=== PATIENT | female | born 1965 | race Caucasian/White ===

== ENCOUNTER → 2017-09-14 11:07 | Outpatient (CLI) | payer OTHER, SELFPAY ==
[2017-09-14 13:32] LABS: Specimen Label SEND OUT
== END ==
PROVIDERS: Family Provider Family Medicine; PCP Family Medicine; Visit Provider Urology
DX: N20.0 Calculus of kidney (principal)
CPT/HCPCS: 36415; 99001

== ENCOUNTER → 2018-02-19 12:47 | Outpatient (CLI) | payer OTHER, SELFPAY ==
--- NOTE | 2018-02-19 12:49 | DI.MG.S_ITS ---
BILATERAL DIGITAL SCREENING MAMMOGRAM 3D/2D WITH CAD: 02/19/2018 CLINICAL: Routine screening. Family history of breast cancer. Comparison is made to exams dated: 02/18/2017 mammogram, 10/08/2015 mammogram, and 06/30/2013 mammogram - [facility]. The tissue of both breasts is extremely dense, which lowers the sensitivity of mammography. Current study was also evaluated with a Computer Aided Detection (CAD) system. There are benign calcifications in both breasts. No significant masses, calcifications, or other findings are seen in either breast. There has been no significant interval change. IMPRESSION: There is no mammographic evidence of malignancy. A 1 year screening mammogram is recommended. This exam was interpreted at Station ID: [id number]. NOTE: For mammograms, a report in lay terms will be sent to the patient. Approximately 15% of breast malignancies will not be visualized mammographically. In the management of a palpable breast mass, a negative mammogram must not discourage biopsy of a clinically suspicious lesion. Electronically Signed By: Anne santiago/frank:02/21/2018 16:17:14 letter sent: Normal Exam ACR BI-RADS Category 2: Benign Finding(s) 3342F
== END ==
PROVIDERS: Family Provider Family Medicine; PCP Family Medicine; Visit Provider Family Medicine
DX: Z12.31 Encounter for screening mammogram for malignant neoplasm of breast (principal); Z80.3 Family history of malignant neoplasm of breast
CPT/HCPCS: 77063; 77067

== ENCOUNTER → 2018-04-21 15:01 | Outpatient (CLI) | payer OTHER, SELFPAY ==
--- NOTE | 2018-04-21 | DI.US.S_ITS ---
PROCEDURE: US ABDOMEN COMPLETE INDICATIONS: HEPATIC HEMANGIOMA TECHNIQUE: Real-time scanning was performed of the abdominal and retroperitoneal organs, with image documentation. COMPARISON: [facility], CT, ABDOMEN W&WO CONTRAST, 03/29/2017, 13:24. [facility], US, ABDOMEN COMPLETE, 06/29/2016, 7:28. FINDINGS: Liver: Liver is normal in size and homogeneous in echotexture. Stable appearance of simple cyst at the junction between the left and right hepatic lobes measuring 3.3 x 2.7 x 3.2 cm. A posterior right hepatic lobe hyperechoic mass is again noted abutting the hepatic capsule measuring 2.2 x 1.6 x 1.6 cm. This is stable to slightly larger compared to prior study which previously measured 1.5 x 1.2 x 1.6 cm. This may be accounted for by slight differences in imaging technique. This demonstrated imaging characteristics of a benign hemangioma based on CT dated 03/29/2018. Gallbladder: Normal sonographic appearance. Biliary ducts: Intrahepatic bile ducts are non-dilated. Extrahepatic bile duct caliber measures 5.5 mm. Normal is 6-7 mm or less in diameter, or 10 mm or less post-cholecystectomy. Pancreas: Visualized portions of the pancreas are sonographically normal. Spleen: Spleen is normal in size and homogeneous in echotexture. Kidneys: Kidneys are normal in size and echotexture. Right kidney measures 12.0 cm long; left kidney measures 11.0 cm long. No hydronephrosis or nephrolithiasis. There is a rounded, 5 mm hyperechoic focus within the right mid kidney without associated vascularity or posterior shadowing. No suspicious solid masses. Aorta: Visualized aorta is normal in caliber at less than 3 cm. Iliacs: Proximal common iliac arteries are not well visualized due to overlying bowel gas. IVC: Intrahepatic inferior vena cava is patent. Miscellaneous: No free abdominal fluid. IMPRESSION: 1. Stable to slightly increased size of known, benign posterior right hepatic lobe hemangioma based on imaging characteristics of CT dated 03/29/2017. 2. There is a 5 mm rounded hyperechoic focus in the mid right kidney which may represent a non-shadowing nephrolith given prior history of nephrolithiasis versus a small angiomyolipoma. No hydronephrosis. 3. Stable hepatic cyst. Dictated by: Robert Moody M.D. on 04/22/2018 at 9:07 Approved by: Robert Moody M.D. on 04/22/2018 at 10:59
--- NOTE | 2018-04-21 | DI.CT.S_ITS ---
PROCEDURE: CT LUMBAR SPINE WO CON INDICATIONS: HEPATIC HEMANGIOMA TECHNIQUE: Noncontrast 3 mm thick sections acquired from the T12 level to the sacrum. Sagittal and coronal reformats were constructed. For radiation dose reduction, the following was used: automated exposure control. COMPARISON: [facility], CT, KIDNEY/ URETER/BLADDER, 06/17/2016, 7:44. [facility], MR, L-SPINE WITHOUT CONTRAST, 04/15/2017, 15:09. [facility], MR, L-SPINE WITH CONTRAST, 05/21/2017, 18:00. FINDINGS: Image quality: Excellent. Bones: There is normal bony alignment. No acute vertebral body compression fractures. A sclerotic focus within the L3 vertebral body is unchanged. Multilevel disc space narrowing and endplate osteophyte formation. Multilevel facet hypertrophy. Central spinal caliber is of normal overall caliber. No pars defects. Mild multilevel canal stenoses. Multilevel foraminal stenoses, worst at L4-L5, where there are moderate bilateral foraminal stenoses, and L5-S1, where there are moderate to severe bilateral foraminal stenoses. Soft tissues: No retroperitoneal masses or hematomas. Visualized aorta is normal in caliber. IMPRESSION: 1. No change in L3 hemangioma. 2. Multilevel degenerative disc and facet disease, causing mild multilevel canal stenoses, and multilevel foraminal stenoses, worst at L4-L5 and L5-S1 as above. Dictated by: Asael Strickland M.D. on 04/21/2018 at 15:02 Approved by: Asael Strickland M.D. on 04/21/2018 at 15:04
== END ==
PROVIDERS: Family Provider Family Medicine; PCP Family Medicine; Visit Provider Family Medicine
DX: D18.09 Hemangioma of other sites (principal); M51.36 Other intervertebral disc degeneration, lumbar region; M48.061 Spinal stenosis, lumbar region without neurogenic claudication; M48.07 Spinal stenosis, lumbosacral region
CPT/HCPCS: 72131; 76700

== ENCOUNTER → 2019-03-24 11:52 | Outpatient (CLI) | payer OTHER, SELFPAY ==
--- NOTE | 2019-03-24 | DI.MG.S_ITS ---
BILATERAL DIGITAL SCREENING MAMMOGRAM 3D/2D WITH CAD: 03/24/2019 CLINICAL: Routine screening. Family history of breast cancer. Comparison is made to exams dated: 02/19/2018 mammogram, 02/18/2017 mammogram, and 10/08/2015 mammogram - [facility]. The tissue of both breasts is extremely dense, which lowers the sensitivity of mammography. Current study was also evaluated with a Computer Aided Detection (CAD) system. There are benign calcifications in both breasts. No significant masses, calcifications, or other findings are seen in either breast. There has been no significant interval change. IMPRESSION: There is no mammographic evidence of malignancy. A 1 year screening mammogram is recommended. This exam was interpreted at Station ID: [id number]. NOTE: For mammograms, a report in lay terms will be sent to the patient. Approximately 15% of breast malignancies will not be visualized mammographically. In the management of a palpable breast mass, a negative mammogram must not discourage biopsy of a clinically suspicious lesion. Electronically Signed By: Malik moraes/frank:03/24/2019 16:11:25 letter sent: Normal Exam ACR BI-RADS Category 2: Benign Finding(s) 3342F
== END ==
PROVIDERS: PCP Family Medicine; Visit Provider Family Medicine
DX: Z12.31 Encounter for screening mammogram for malignant neoplasm of breast (principal); Z80.3 Family history of malignant neoplasm of breast
CPT/HCPCS: 77063; 77067

== ENCOUNTER → 2020-05-07 16:40 | Outpatient (CLI) | payer OTHER, SELFPAY ==
--- NOTE | 2020-05-07 16:43 | DI.MG.S_ITS ---
BILATERAL DIGITAL SCREENING MAMMOGRAM 3D/2D WITH CAD: 05/07/2020 CLINICAL: Routine screening. Family history of breast cancer. Comparison is made to exams dated: 03/24/2019 mammogram, 02/19/2018 mammogram, and 02/18/2017 mammogram - [facility]. The tissue of both breasts is extremely dense, which lowers the sensitivity of mammography. Current study was also evaluated with a Computer Aided Detection (CAD) system. There are benign calcifications in both breasts. No significant masses, calcifications, or other findings are seen in either breast. There has been no significant interval change. IMPRESSION: BENIGN There is no mammographic evidence of malignancy. A 1 year screening mammogram is recommended. This exam was interpreted at Station ID: [id number]. NOTE: For mammograms, a report in lay terms will be sent to the patient. Approximately 15% of breast malignancies will not be visualized mammographically. In the management of a palpable breast mass, a negative mammogram must not discourage biopsy of a clinically suspicious lesion. Electronically Signed By: James García acr/frank:05/07/2020 16:59:41 letter sent: Normal Exam ACR BI-RADS Category 2: Benign Finding(s) 3342F
== END ==
PROVIDERS: PCP Family Medicine; Referring Provider Family Medicine; Visit Provider Family Medicine
DX: Z12.31 Encounter for screening mammogram for malignant neoplasm of breast (principal); Z80.3 Family history of malignant neoplasm of breast
CPT/HCPCS: 77063; 77067

== ENCOUNTER → 2020-08-29 12:41 | Outpatient (CLI) | payer OTHER, SELFPAY ==
--- NOTE | 2020-08-29 12:42 | DI.CT.S_ITS ---
PROCEDURE: CT LUMBAR SPINE WO CON INDICATIONS: Hemangioma of intra-abdominal structures TECHNIQUE: Noncontrast 3 mm thick sections acquired from the T12 level to the sacrum. Sagittal and coronal reformats were constructed. For radiation dose reduction, the following was used: automated exposure control. COMPARISON: [facility], CT, CT LUMBAR SPINE WO CON, 04/21/2018, 15:10. FINDINGS: Image quality: Excellent. Bones: There is grade 1 anterolisthesis of L4 on L5, 5 mm, grade 1 retrolisthesis of L5 on S1, 6 mm. There is unchanged appearance of sclerosis within the L3 vertebral body. This is most suggestive of hemangioma. Minimal canal narrowing is noted at L3-4, L4-5 without change. Scattered minimal to mild disc bulges are present. Multilevel foraminal narrowing is present most notable at L4-5 and L5-S1 with prominent facet and ligamentum flavum hypertrophy. No interval progression. Soft tissues: No retroperitoneal masses or hematomas. Visualized aorta is normal in caliber. IMPRESSION: 1. Stable appearance of sclerosis at L3 most suggestive of hemangioma. 2. Scattered areas of degenerative change remaining most prominent L4-5 and L5-S1. Dictated by: May Sanchez M.D. on 08/29/2020 at 16:04 Approved by: May Sanchez M.D. on 08/29/2020 at 16:08
== END ==
PROVIDERS: PCP Family Medicine; Referring Provider Family Medicine; Visit Provider Family Medicine
DX: D18.03 Hemangioma of intra-abdominal structures (principal); M47.816 Spondylosis without myelopathy or radiculopathy, lumbar region; M47.817 Spondylosis without myelopathy or radiculopathy, lumbosacral region
CPT/HCPCS: 72131

== ENCOUNTER → 2021-06-11 14:10 | Outpatient (CLI) | payer OTHER, SELFPAY ==
--- NOTE | 2021-06-11 | DI.MG.S_ITS ---
BILATERAL DIGITAL SCREENING MAMMOGRAM 3D/2D WITH CAD: 06/11/2021 CLINICAL: Routine screening. Family history of breast cancer. Comparison is made to exams dated: 05/07/2020 mammogram, 03/24/2019 mammogram, and 02/19/2018 mammogram - [facility]. The tissue of both breasts is extremely dense, which lowers the sensitivity of mammography. Current study was also evaluated with a Computer Aided Detection (CAD) system. There is a possible asymmetry with an indistinct margin in the left breast middle depth central to the nipple seen on the craniocaudal view only. No other significant masses, calcifications, or other findings are seen in either breast. IMPRESSION: INCOMPLETE: NEEDS ADDITIONAL IMAGING EVALUATION The possible asymmetry in the left breast is indeterminate. Additional views with possible ultrasound are recommended. This exam was interpreted at Station ID: [id number]. NOTE: For mammograms, a report in lay terms will be sent to the patient. Approximately 15% of breast malignancies will not be visualized mammographically. In the management of a palpable breast mass, a negative mammogram must not discourage biopsy of a clinically suspicious lesion. Electronically Signed By: Jesús Pearson M.D., jr/frank:06/11/2021 15:17:07 letter sent: Additional Imaging Needed ACR BI-RADS Category 0: Incomplete 3340F
== END ==
PROVIDERS: PCP Family Medicine; Referring Provider Family Medicine; Visit Provider Family Medicine
DX: Z12.31 Encounter for screening mammogram for malignant neoplasm of breast (principal); Z80.3 Family history of malignant neoplasm of breast
CPT/HCPCS: 77063; 77067

== ENCOUNTER → 2021-07-21 14:08 | Outpatient (CLI) | payer OTHER, SELFPAY ==
--- NOTE | 2021-07-21 | DI.MG.S_ITS ---
UNILATERAL LEFT DIGITAL DIAGNOSTIC MAMMOGRAM 3D/2D WITH ADDITIONAL VIEWS: 07/21/2021 CLINICAL: Additional evaluation requested from prior study. Comparison is made to exams dated: 06/11/2021 mammogram, 03/24/2019 mammogram, and 05/07/2020 mammogram - [facility]. The tissue of left breast is extremely dense, which lowers the sensitivity of mammography. There are diffuse calcifications in the left breast that are not significantly changed. The previously described possible asymmetry with an indistinct margin in the left breast middle depth central to the nipple seen on the craniocaudal view only is not reproduced and presumably represented superimposed breast tissue. No other significant masses or calcifications are seen in the breast. IMPRESSION: INCOMPLETE: NEEDS ADDITIONAL IMAGING EVALUATION Given patient's extremely dense fibroglandular tissue, a left ultrasound is recommended to confirm the no longer seen asymmetry in the left breast middle depth central to the nipple seen on the craniocaudal view only. This is scheduled to immediately follow this exam. This exam was interpreted at Station ID: [id number]. NOTE: For mammograms, a report in lay terms will be sent to the patient. Approximately 15% of breast malignancies will not be visualized mammographically. In the management of a palpable breast mass, a negative mammogram must not discourage biopsy of a clinically suspicious lesion. Electronically Signed By: Robert Moody M.D. aty/:07/21/2021 16:02:16 ACR BI-RADS Category 0: Incomplete 3340F
--- NOTE | 2021-07-21 | DI.US.S_ITS ---
ULTRASOUND OF LEFT BREAST: 07/21/2021 CLINICAL: Patient returns today to evaluate an asymmetry in the left breast. Comparison is made to exams dated: 07/21/2021 mammogram, 06/11/2021 mammogram, 05/07/2020 mammogram, 03/24/2019 mammogram, 02/19/2018 mammogram, and 02/18/2017 mammogram - [facility]. Color flow and real-time ultrasound of the left breast were performed. Edwards scale images of the real-time examination were reviewed. No significant abnormalities were seen sonographically in the left breast. IMPRESSION: NEGATIVE There is no sonographic evidence of malignancy. There is no abnormality seen in the left breast to correspond with the mammography finding which likely represents normal fibroglandular tissue. A 1 year screening mammogram is recommended. Additionally, patient has an elevated lifetime risk for breast cancer of greater than 20% (34.9%). Recommend consideration for screening breast MRI as an adjunct to screening mammography. Findings and recommendations were conveyed to the patient during today's evaluation. This exam was interpreted at Station ID: [id number]. Electronically Signed By: Robert Moody M.D. aty/:07/21/2021 16:03:39 letter sent: Normal Exam Ultrasound BI-RADS: 1 Negative
== END ==
PROVIDERS: PCP Family Medicine; Referring Provider Family Medicine; Visit Provider Family Medicine
DX: R92.8 Other abnormal and inconclusive findings on diagnostic imaging of breast (principal); N64.89 Other specified disorders of breast
CPT/HCPCS: 76642; 77065; G0279

== ENCOUNTER → 2022-06-19 15:17 | Outpatient (CLI) | payer OTHER, SELFPAY ==
--- NOTE | 2022-06-19 | DI.MG.S_ITS ---
BILATERAL DIGITAL SCREENING MAMMOGRAM 3D/2D WITH CAD: 06/19/2022 CLINICAL: Routine screening. Family history of breast cancer. Comparison is made to exams dated: 06/11/2021 mammogram, 05/07/2020 mammogram, 03/24/2019 mammogram, and 02/19/2018 mammogram - [facility]. Both breasts are extremely dense, which lowers the sensitivity of mammography (category d />75% glandular tissue). Current study was also evaluated with a Computer Aided Detection (CAD) system. There are benign diffuse calcifications in both breasts. No significant masses, calcifications, or other findings are seen in either breast. There has been no significant interval change. IMPRESSION: BENIGN There is no mammographic evidence of malignancy. A 1 year screening mammogram is recommended. Based on Tyrer-Cuzick model (a risk assessment model), the patient's lifetime risk is 34.4% and her 10 year risk is 14.6%. If a patient has an elevated risk, a more comprehensive evaluation should be considered and/or a referral to a genetic counselor. The [place] [employer], [place] [employer], and NCCN Guidelines advise the consideration of Breast MRI as an adjunct to screening mammography in patients whose Lifetime risk to develop breast cancer is 20% or higher. This exam was interpreted at Station ID: [id number]. NOTE: For mammograms, a report in lay terms will be sent to the patient. Approximately 15% of breast malignancies will not be visualized mammographically. In the management of a palpable breast mass, a negative mammogram must not discourage biopsy of a clinically suspicious lesion. Electronically Signed By: Robert kaba/frank:06/19/2022 17:07:33 letter sent: Normal Exam ACR BI-RADS Category 2: Benign Finding(s) 3342F
== END ==
PROVIDERS: PCP Family Medicine; Referring Provider Family Medicine; Visit Provider Family Medicine
DX: Z12.31 Encounter for screening mammogram for malignant neoplasm of breast (principal); Z80.3 Family history of malignant neoplasm of breast
CPT/HCPCS: 77063; 77067

== ENCOUNTER 2022-12-19 10:29 | Emergency (ER) | payer OTHER, SELFPAY ==
[2022-12-19 10:33] VITALS: BP 113/65; PULSE 74; RESP 18; TEMP 37; O2SAT 100; BMI 20.2
--- NOTE | 2022-12-19 11:10 | ED_ITS ---
HPI - Fall General Chief Complaint: Fall Stated Complaint: FELL DOWN STAIRS Time Seen by Provider: 12/19/22 10:36 Source: patient and family Mode of arrival: Ambulatory History of Present Illness HPI Narrative: 57-year-old female nonsmoker with noncontributory chronic medical history presents with her in the chief complaint of injury suffered as a consequence of an accidental fall last night. She was walking outside to look at the clips and slipped on some stairs landing on her right lower ribs and posterior thigh. She denies any head neck or back pain. She has full recall and denies loss of consciousness, dizziness. She has no chest pain or shortness of breath. She denies any trouble with bowel movements or urine, specifically no blood in her urine. She has right lower rib pain and flank pain that is worse when she moves and improves with rest. She denies loss of control of bowel or bladder. She denies any lower extremity numbness, tingling or weakness. She took some ibuprofen and threw up soon thereafter but denies any other ongoing vomiting and no other medications Related Data Home Medications Medication Instructions Recorded Confirmed CYANOCOBALAMIN (VITAMIN B-12) 1,000 mcg PO QDAY ##0 09/06/12 Iron (FERROUS GLUCONATE) 27 mg PO QDAY ##0 09/06/12 cholecalciferol (vitamin D3) 50 2,000 unit PO QDAY ##0 09/06/12 mcg (2,000 unit) capsule (Vitamin D3) omeprazole 40 mg capsule,delayed 40 mg PO QDAY ##0 09/06/12 release ibuprofen 200 mg tablet (Advil) 200 mg PO PRN ##0 09/29/12 Previous Rx's Medication Instructions Recorded hydrocodone 5 mg-acetaminophen 325 1 tab PO Q6HP PRN #10 tabs 06/17/16 mg tablet ([place]) ondansetron 4 mg disintegrating 4 mg sublingual Q6HP PRN ##10 06/17/16 tablet (Zofran ODT) tamsulosin 0.4 mg capsule (Flomax) 0.4 mg PO Q DAY #7 caps 02/25/17 cyclobenzaprine 10 mg tablet 10 mg PO TID PRN muscle spasm #14 12/19/22 tabs hydrocodone 5 mg-acetaminophen 325 1 tab PO Q4-6H PRN pain #10 tabs 12/19/22 mg tablet ketorolac 10 mg tablet 10 mg PO Q6H PRN pain #14 tabs 12/19/22 lidocaine 5 % topical patch 1 patch topical DAILY #15 ea 12/19/22 (Lidoderm) Allergies Allergy/AdvReac Type Severity Reaction Status Date / Time No Known Drug Allergies Allergy Verified 12/19/22 10:34 Review of Systems Review of Systems Narrative: GENERAL: Denies chills, fatigue, malaise, fever, sweats. HEENT: Denies sinus pain, ear pain, sore throat, difficulty swallowing, dizziness. RESPIRATORY: Denies dyspnea, cough, wheezing, hemoptysis, sputum. CARDIOVASCULAR: Denies chest pain, palpitations, orthopnea, edema, GASTROINTESTINAL: See HPI : Denies dysuria, frequency, incontinence, hematuria, urinary retention. MUSCULOSKELETAL: See HPI SKIN: Denies rash, skin lesions, or other NEUROLOGIC: Denies weakness, headache, numbness, change in speech, confusion, seizures, incoordination. PSYCHIATRIC: No concerning psychosocial issues. 12 point review of systems is negative except for those stated above Patient History Surgical History Status post surgery (10/03/12) Substance Use Type: does not use Exam Narrative Exam Narrative: GENERAL: [57] year old patient appears stated age. Well-developed patient, in mild distress. Obviously uncomfortable, sitting upright, rubbing her right lower back HEAD: Atraumatic. Normocephalic. GCS 15 EYES: Pupils equal round and reactive. Extraocular motions intact. No scleral icterus. No injection or drainage. ENT: Nose without bleeding, purulent drainage. Throat without erythema, tonsillar hypertrophy or exudate. Airway patent. NECK: Trachea midline. Non tender CARDIOVASCULAR: Regular rate and rhythm without murmurs, gallops, or rubs. RESPIRATORY: Clear to auscultation. Breath sounds equal bilaterally. No wheezes, rales, or rhonchi. GASTROINTESTINAL: Abdomen soft, non-tender, nondistended. EXTREMITIES: No edema or joint tenderness. BACK: wax pot tender but free of any obvious external abnormalities. Patient exam notes decreased range of motion and muscle spasm, but no CVA tenderness, or vertebral point tenderness. There are no symptoms of cauda equina such as saddle anesthesia, and decreased reflexes, decreased sensation or strength. No swelling or ecchymosis noted NEURO: AOx3. SKIN: No rash or erythema of visible areas Initial Vital Signs Initial Vital Signs: Vital Signs Temperature 98.6 F 12/19/22 10:33 Pulse Rate 74 12/19/22 10:33 Respiratory Rate 18 12/19/22 10:33 Blood Pressure 113/65 12/19/22 10:33 Pulse Oximetry 100 12/19/22 10:33 Oxygen Delivery Method Room Air 12/19/22 10:33 Course Orders Ordered: ED Orders 12/19/22 11:15 XR femur RT min 2V Stat XR ribs RT min 3V w CXR1V Stat 12/19/22 12:25 Urinalysis and Microscopic Stat Urine Culture Stat 12/19/22 12:41 CT pelvis wo con Stat Discontinued Medications Ketorolac Tromethamine (Ketorolac 30 Mg/Ml Vial) 30 mg IM NOW ONE Stop: 12/19/22 11:16 Last Admin: 12/19/22 11:59 Dose: 30 mg Documented By: LAILA Lidocaine (Lidocaine Patch 1 Each Adh..Patch) 1 each TOP NOW ONE Stop: 12/19/22 11:16 Last Admin: 12/19/22 11:59 Dose: 1 each Documented By: LAILA Ondansetron HCl (Ondansetron 4 Mg Odt) 4 mg SL NOW ONE Stop: 12/19/22 11:16 Last Admin: 12/19/22 11:59 Dose: 4 mg Documented By: LAILA Vital Signs Vital signs: Vital Signs - 8 hr 12/19/22 10:33 12/19/22 14:46 Temperature 98.6 F Pulse Rate 74 78 Respiratory Rate 18 Blood Pressure 113/65 115/66 Pulse Oximetry 100 99 Oxygen Delivery Method Room Air Room Air - Fall Lab Data Labs: Lab Results 12/19/22 Range/Units 12:25 Urine Color Yellow Urine Appearance Clear Urine pH 6.5 (4.5-8.0) Ur Specific [place] 1.025 (1.000-1.035) Urine Protein Trace H (Negative) Urine Glucose (UA) Negative (Negative) g/dL Urine Ketones Negative (NEGATIVE) Urine Occult Blood Negative (Negative) Urine Nitrate Negative (Negative) Urine Bilirubin Negative (NEGATIVE) Urine Urobilinogen 1.0 (0.2) E.U./dL Ur Leukocyte Esterase Negative (NEGATIVE) Urine RBC None seen (0-5/HPF) Urine WBC 5-10/hpf H (0-5/HPF) Ur Squamous Epith Cells 5-10 /hpf H (0-5/HPF) Urine Bacteria Moderate (10-30) H (None) Urine Mucus 2+ H (Negative) Ur Culture Indicated? Specimen cultured Urine Dip Bedside Urine Glucose Negative Bedside Urine Bilirubin - Negative Bedside Urine Ketone - Negative Urine Specific [place] 1.025 Bedside Urine Occult Blood - Negative Bedside Urine pH 6.0 Bedside Urine Protein + 30 Bedside Urine Urobilinogen - Negative Bedside Urine Nitrite - Negative Bedside Urine Leukocytes - Negative Esterase MDM Narrative Medical decision making narrative: [57] year old patient presents with right flank, low back and posterior thigh pain after fall Multiple etiologies for patient's symptoms considered including, but not limited to: [Spasm versus strain versus contusion versus fracture versus (much less likely) injury to internal organs such as kidney and bowel] Prior Charts reviewed in our EMR Primary Historian: patient Imaging reviewed: CT of pelvis without evidence of fracture, x-rays of rib and femur without obvious abnormality Patient's history and physical exam are very reassuring, no external manifestation of injury, no bruising or hematoma on flank, no blood in urine. There is some evidence of leukocytosis in the urine, however patient has no dysuria, frequency or urgency, she states she is had UTIs in the past and does not feel like she has 1. We discussed the use of antibiotics now versus waiting on the culture and elected to hold on the culture. Additionally we discussed the utility of more advanced imaging of her abdomen and pelvis to rule out internal bleeding but patient's symptoms are mild, significantly improved with above-stated therapies, no external evidence such as abrasion, contusion or hematoma. No blood in urine. We did discuss return precautions but in the end decided not to perform a CT at this time. Patient's symptoms improved over duration of stay with above-stated therapies. Findings and discharge diagnosis discussed with patient/family followed by leonardo jimenez understanding Return precautions discussed with patient/family whom verbalize understanding of diagnosis and plan Discharge Plan Departure Patient Disposition: Home Clinical Impression: Low back pain Instructions: How to Prevent Falls Activity Restrictions/Additional Instructions: *You have been diagnosed with [flank pain after fall. As we discussed your history and physical exam are very reassuring and there is no evidence of fracture, internal bleeding. Your discomfort is most likely a consequence of inflammation and spasming.] *What to do: *Please continue to take your regular medications as directed. [x ] New medication prescriptions sent to your pharmacy: [[facility] ] [ ] New medication written as a paper prescription [ ] No new medications given *Please follow up with your primary care provider in 2-3 days, call for an appointment. Let them know you were seen in the Emergency Department and that we ask that you be seen in follow up. We will electronically transmit a record of today's note if your PCP is in our system *Return to Emergency Department if you should have any new, worsening or concerning symptoms, such as [fever greater than 101 F, shaking chills, worsening pain, persistent vomiting or other bothersome symptoms] You have been prescribed a short course of narcotic medications. These are potentially dangerous and addictive medications that should be used carefully. While on these medications you cannot drive or operate heavy machinery. Additionally, you cannot sign legal documents or perform any duties such as this. 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 Please understand that we cannot provide further refills of narcotics or controlled substances through the ED and your pain management will need to be through your Primary Care Provider Prescriptions: New cyclobenzaprine 10 mg tablet 10 mg PO TID PRN (Reason: muscle spasm) Qty: 14 0RF hydrocodone-acetaminophen 5-325 mg tablet 1 tab PO Q4-6H PRN (Reason: pain) Qty: 10 0RF ketorolac 10 mg tablet 10 mg PO Q6H PRN (Reason: pain) Qty: 14 0RF lidocaine [Lidoderm] 5 % adhesive patch,medicated 1 patch TOP DAILY Qty: 15 0RF Rx Instructions: leave on most painful area for 12 hrs No Action omeprazole 40 MG capsule,delayed release(DR/EC) 40 mg PO QDAY Qty: 0 cholecalciferol (vitamin D3) [Vitamin D3] 2,000 UNIT capsule 2,000 unit PO QDAY Qty: 0 CYANOCOBALAMIN (VITAMIN B-12) 1,000 mcg PO QDAY Qty: 0 Iron (FERROUS GLUCONATE) 27 mg PO QDAY Qty: 0 ibuprofen [Advil] 200 MG tablet 200 mg PO PRN Qty: 0 hydrocodone-acetaminophen [[place]] 5 MG/325 MG tablet 1 tab PO Q6HP PRNQty: 10 0RF ondansetron [Zofran ODT] 4 MG tablet,disintegrating 4 mg Sublingual Q6HP PRNQty: 10 0RF tamsulosin [Flomax] 0.4 MG capsule,extended release 24hr 0.4 mg PO Q DAY Qty: 7 0RF Referrals: Britni Mesa MD [Primary Care Provider] - Stand Alone Forms: Patient Portal/API
--- NOTE | 2022-12-19 11:15 | DI.RAD.S_ITS ---
PROCEDURE: XR RIBS RT MIN 3V W CXR 1V INDICATIONS: fall with lower lateral rib pain TECHNIQUE: 2 views of the right ribs were acquired, along with a single view chest. COMPARISON: [facility], CR, XR FEMUR RT MIN 2V, 12/19/2022, 11:27. FINDINGS: Surgical changes and devices: None. Bones and chest wall: No fractures or dislocations. No suspicious bony lesions. Age-appropriate bony degenerative changes are seen. Overlying soft tissues appear unremarkable. Lungs and pleura: No pleural effusions or pneumothorax. Lungs appear clear. Mediastinum: Mediastinal contours appear normal. Heart size is normal. IMPRESSION: No displaced rib fracture is seen on these plain films. No pneumothorax. Dictated by: Daniel Reynoso M.D. on 12/19/2022 at 11:33 Approved by: Daniel Reynoso M.D. on 12/19/2022 at 11:34
--- NOTE | 2022-12-19 11:15 | DI.RAD.S_ITS ---
PROCEDURE: XR FEMUR RT MIN 2V INDICATIONS: fall with posterior thigh pain TECHNIQUE: 2 views of the femur were acquired. COMPARISON: [facility], CR, XR RIBS RT MIN 3V W CXR 1V, 12/19/2022, 11:27. FINDINGS: Bones: There is a minimal linear lucency seen involving the right greater trochanter on one view. No additional focal bony abnormality is seen. Right hip degenerative change can be seen. No suspicious lytic or blastic lesions are seen. Soft tissues: No suspicious soft tissue calcifications or masses. IMPRESSION: Minimal linear lucency seen on one view involving the right greater trochanter. This is felt most likely to be related to artifact. Differential diagnosis includes a nondisplaced fracture. If there is focal tenderness referable to this area, please consider a follow-up if CT for further evaluation. Dictated by: Daniel Reynoso M.D. on 12/19/2022 at 11:30 Approved by: Daniel Reynoso M.D. on 12/19/2022 at 11:32
[2022-12-19] MEDS: KETOROLAC 30 MG/ML VIAL IM (11:59)
[2022-12-19] MEDS: LIDOCAINE PATCH 1 EACH ADH..PATCH TOP (11:59)
[2022-12-19] MEDS: ONDANSETRON 4 MG ODT SL (11:59)
[2022-12-19 12:33] LABS: Appearance Urine UA CLEAR; Bilirubin Urine UA NEGATIVE (NEGATIVE); Color Urine UA YELLOW; Glucose Urine UA NEGATIVE (Negative); Ketones Urine UA NEGATIVE (NEGATIVE); Leukocyte Esterase Urine UA NEGATIVE (NEGATIVE); Nitrite Urine UA NEGATIVE (Negative); Occult Blood Urine UA NEGATIVE (Negative); Protein Urine UA TRACE (Negative); Specific Gravity Urine UA 1.025 (1.000-1.035)
[2022-12-19 12:34] LABS: pH Urine UA 6.5 (4.5-8.0)
--- NOTE | 2022-12-19 12:41 | DI.CT.S_ITS ---
PROCEDURE: CT PEL WO CON INDICATIONS: right lower hip pain, question fx on xray TECHNIQUE: Noncontrast 3 mm axial sections acquired through the bony pelvis, with coronal and sagittal reformatting. COMPARISON: [facility], CT, KIDNEY/ URETER/BLADDER, 02/25/2017, 5:58. [facility], CR, XR FEMUR RT MIN 2V, 12/19/2022, 11:27. FINDINGS: Image quality: Excellent. Bones: In this patient with this given history, scrutiny is given to right greater trochanter at the site of the potential plain film abnormality. No fracture can be seen at this site. No fracture seen elsewhere within the right proximal femur or within the bones of the pelvis. No left femur fracture is seen. Age-appropriate bony degenerative changes are seen. Note is made of a rudimentary, transitional disc at the S1-S2 level. Soft tissues: Calcified uterine fibroids can be seen within the uterus. No dilated loops of small bowel are seen. No significant colonic abnormality is seen. No bladder wall thickening is seen. No enlarged inguinal or pelvic lymph nodes can be seen. No ascites is seen. Soft tissue bruising can be seen involving the right posterolateral thigh superficial soft tissues, as on series 5, image 89. IMPRESSION: Negative for displaced fracture. The plain film finding is attributed to artifact. Soft tissue bruising noted. Additional findings: Calcified uterine fibroids Transitional disc noted at the S1-S2 level. Dictated by: Daniel Reynoso M.D. on 12/19/2022 at 12:57 Approved by: Daniel Reynoso M.D. on 12/19/2022 at 13:00
[2022-12-19 13:20] LABS: Bacteria Urine Moderate (10-30); Culture Indicated Urine Specimen Cultured; Mucus Urine 2+ (Negative); RBC Urine None Seen (0-5/HPF); Squamous Epithelial Cell Urine 5-10 /HPF (0-5/HPF); WBC Urine 5-10/HPF (0-5/HPF)
[2022-12-19 14:46] VITALS: BP 115/66; PULSE 78; O2SAT 99
== END 2022-12-19 15:06 | disposition home or self-care (01) ==
PROVIDERS: Emergency Provider Emergency Medicine; PCP Family Medicine
DX: M54.50 Low back pain, unspecified (principal); R07.81 Pleurodynia; W01.198A Fall on same level from slipping, tripping and stumbling with subsequent striking against other object, initial encounter
CPT/HCPCS: 71101; 72192; 73552; 81001; 81003; 87077; 87086; 87186; 96372; 99284; J1885

== ENCOUNTER → 2023-09-29 14:58 | Outpatient (CLI) | payer OTHER, SELFPAY ==
--- NOTE | 2023-09-29 15:00 | DI.MG.S_ITS ---
BILATERAL DIGITAL SCREENING MAMMOGRAM 3D/2D WITH CAD: 09/29/2023 CLINICAL: Routine screening. Family history of breast cancer. Comparison is made to exams dated: 06/19/2022 mammogram, 06/11/2021 mammogram, and 05/07/2020 mammogram - [facility]. Both breasts are extremely dense, which lowers the sensitivity of mammography (category d />75% glandular tissue). Current study was also evaluated with a Computer Aided Detection (CAD) system. There are benign diffuse calcifications in both breasts. No significant masses, calcifications, or other findings are seen in either breast. There has been no significant interval change. IMPRESSION: BENIGN There is no mammographic evidence of malignancy. A 1 year screening mammogram is recommended. Based on Tyrer-Cuzick model (a risk assessment model), the patient's lifetime risk is 33.8% and her 10 year risk is 14.9%. If a patient has an elevated risk, a more comprehensive evaluation should be considered and/or a referral to a genetic counselor. The [place] Cancer Society, [employer] College of Radiology, and NCCN Guidelines advise the consideration of Breast MRI as an adjunct to screening mammography in patients whose Lifetime risk to develop breast cancer is 20% or higher. This exam was interpreted at Station ID: [id number]. NOTE: For mammograms, a report in lay terms will be sent to the patient. Approximately 15% of breast malignancies will not be visualized mammographically. In the management of a palpable breast mass, a negative mammogram must not discourage biopsy of a clinically suspicious lesion. Electronically Signed By: Yudy Bob M.D., Ph.D. kapil/frank:09/30/2023 09:11:16 letter sent: Normal Exam ACR BI-RADS Category 2: Benign Finding(s) 3342F
== END ==
PROVIDERS: PCP Family Medicine; Referring Provider Family Medicine; Visit Provider Family Medicine
DX: Z12.31 Encounter for screening mammogram for malignant neoplasm of breast (principal); Z80.3 Family history of malignant neoplasm of breast; R92.343 Mammographic extreme density, bilateral breasts
CPT/HCPCS: 77063; 77067

== ENCOUNTER → 2023-10-12 08:38 | Outpatient (CLI) | payer OTHER, SELFPAY ==
--- NOTE | 2023-10-12 08:40 | DI.MRI.S_ITS ---
BREAST MRI OF BOTH BREASTS: 10/12/2023 CLINICAL: High risk screening. PROCEDURE: MR BREAST BI WO/W CON INDICATIONS: FIBROCYSTIC BREAST CHANGES / FAM HISTORY/DENSE TECHNIQUE: The patient was placed prone in a dedicated breast imaging coil. Precontrast axial STIR and 3D FLASH without fat saturation sequences were obtained. Both before and after bolus injection of contrast, sequential 1-minute axial 3D FLASH with fat saturation sequences for 3 time points, with subtraction images and maximum intensity projections (MIP's) generated. Delayed sagittal FLASH images with fat saturation were also obtained. Computer-aided detection, including computer algorithm analysis of MRI image data for lesion detection and characterization, pharmacokinetic analysis, with further physician review for interpretation, was performed. COMPARISON: Mammogram 09/29/2023, 06/19/2022. FINDINGS: Image quality: Diagnostic. There is an extreme amount of fibroglandular tissue. There is minimal and symmetric background parenchymal enhancement. Right breast: There is no suspicious enhancement or lymphadenopathy. Left breast: There is no suspicious enhancement or lymphadenopathy. IMPRESSION: NEGATIVE No MRI evidence of malignancy. Recommend routine annual mammogram and MRI screening. This exam was interpreted at Station ID: [id number]. Electronically Signed By: Yudy Bob M.D., Ph.D. eb/:10/13/2023 15:17:55 letter sent: Normal Exam ACR BI-RADS Category 1: Negative [id number]
== END ==
PROVIDERS: PCP Family Medicine; Referring Provider Family Medicine; Visit Provider Family Medicine
DX: N60.11 Diffuse cystic mastopathy of right breast (principal); N60.12 Diffuse cystic mastopathy of left breast; R92.323 Mammographic fibroglandular density, bilateral breasts; R92.30 Dense breasts, unspecified; Z80.3 Family history of malignant neoplasm of breast
CPT/HCPCS: 77049; A9579

== ENCOUNTER → 2024-07-14 12:40 | Outpatient (CLI) | payer OTHER, SELFPAY ==
--- NOTE | 2024-07-14 12:44 | DI.RAD.S_ITS ---
PROCEDURE: XR ABDOMEN 1V INDICATIONS: NEPHROLITHIASIS TECHNIQUE: One view of the abdomen acquired. COMPARISON: None. FINDINGS: Surgical changes and devices: None. Bowel: Bowel gas pattern is normal. Soft tissues: No suspicious abdominal calcifications. Visualized solid organ contours appear normal in size. Bones: No suspicious bony lesions. IMPRESSION: No definite renal stones are seen. Dictated by: Wellington Ya M.D. on 07/14/2024 at 14:49 Approved by: Wellington Ya M.D. on 07/14/2024 at 14:49
--- NOTE | 2024-07-14 12:44 | DI.RAD.S_ITS ---
PROCEDURE: XR LUMBAR SPINE 2-3V INDICATIONS: PAIN TECHNIQUE: 3 views of the lumbar spine were acquired. COMPARISON: None. FINDINGS: Bones: 5 [id number] vertebrae are present. Grade 1 anterolisthesis of L4 on L5. No vertebral body compression fractures. No suspicious bony lesions. There is multilevel facet arthropathy, worse at L4-5 and L5-S1. Multilevel disc height loss with degenerative endplate changes and spurring is present. Most pronounced at L4-5. Soft tissues: Overlying bowel gas pattern is normal. No suspicious soft tissue calcifications. IMPRESSION: Multilevel degenerative changes the lumbar spine, most pronounced at L4-5 with grade 1 anterolisthesis. Dictated by: Wellington Ya M.D. on 07/14/2024 at 14:46 Approved by: Wellington Ya M.D. on 07/14/2024 at 14:48
--- NOTE | 2024-07-14 12:44 | DI.RAD.S_ITS ---
PROCEDURE: XR THORACIC SPINE 3V INDICATIONS: PAIN TECHNIQUE: 3 views of the thoracic spine were acquired. COMPARISON: None. FINDINGS: Bones: Mild height loss of a midthoracic vertebral body. No suspicious bony lesions. 12 pairs of ribs are noted, and appear intact where visualized. There is multilevel intervertebral disc height loss with degenerative endplate changes and marginal spurring. Soft tissues: No paravertebral stripe thickening. IMPRESSION: Multilevel degenerative changes of the thoracic spine. Mild height loss of a midthoracic vertebral body of uncertain chronicity, appears more chronic. Dictated by: Wellington Ya M.D. on 07/14/2024 at 14:23 Approved by: Wellington Ya M.D. on 07/14/2024 at 14:46
== END ==
PROVIDERS: PCP Family Medicine; Referring Provider Family Medicine; Visit Provider Family Medicine
DX: N20.0 Calculus of kidney (principal); M47.814 Spondylosis without myelopathy or radiculopathy, thoracic region; M47.817 Spondylosis without myelopathy or radiculopathy, lumbosacral region; M47.816 Spondylosis without myelopathy or radiculopathy, lumbar region; M43.16 Spondylolisthesis, lumbar region; M54.6 Pain in thoracic spine; M54.50 Low back pain, unspecified
CPT/HCPCS: 72072; 72100; 74018